=== PATIENT | female | born 1950 | race Caucasian/White ===

== ENCOUNTER 2022-10-21 09:31 | Day surgery (SDC) | payer MEDICARE, OTHER ==
[~2022-10-21 09:31] MED LIST: Lactated Ringers 1,000 ML IV PRN; Sodium Chloride 0.9% 10 ML Syringe FLUSH PRN
[2022-10-21] MEDS ORDERED: Ondansetron 4 MG/2 ML SDV IVPUSH ONE (09:32)
[2022-10-21] MEDS ORDERED: Midazolam 1 MG/ML 2 ML SDV IV ONE (09:32)
[2022-10-21] MEDS ORDERED: acetaZOLAMIDE 500 MG Cap.ER PO ONE (11:30)
== END 2022-10-21 11:50 | disposition home or self-care (01) ==
LOC: FB.SDS 09:31
PROVIDERS: ATTEND Ophthalmology
DX: H26.9 Unspecified cataract (principal); M25.561 Pain in right knee; F43.21 Adjustment disorder with depressed mood; E78.2 Mixed hyperlipidemia; I10 Essential (primary) hypertension; E66.3 Overweight; R73.01 Impaired fasting glucose; Z79.84 Long term (current) use of oral hypoglycemic drugs; Z79.899 Other long term (current) drug therapy; Z68.26 Body mass index [BMI] 26.0-26.9, adult
CPT/HCPCS: 00142; A9270-GY; J2250; J2405; J3490; V2632

== ENCOUNTER 2022-11-04 07:29 | Day surgery (SDC) | payer MEDICARE, OTHER ==
[2022-11-04] MEDS ORDERED: Midazolam 1 MG/ML 2 ML SDV IV ONE (07:30)
[2022-11-04] MEDS ORDERED: Ondansetron 4 MG/2 ML SDV IVPUSH ONE (07:30)
[2022-11-04] MEDS ORDERED: Sodium Chloride 0.9% 10 ML Syringe FLUSH PRN (07:30)
[2022-11-04] MEDS: Lactated Ringers 1,000 ML IV PRN (08:20)
[2022-11-04] MEDS: acetaZOLAMIDE 500 MG Cap.ER PO ONE (09:36)
== END 2022-11-04 10:10 | disposition home or self-care (01) ==
LOC: FB.SDS 07:29
PROVIDERS: ATTEND Ophthalmology
DX: H26.9 Unspecified cataract (principal); F43.21 Adjustment disorder with depressed mood; I10 Essential (primary) hypertension; E78.5 Hyperlipidemia, unspecified; R73.01 Impaired fasting glucose; Z79.899 Other long term (current) drug therapy; Z79.84 Long term (current) use of oral hypoglycemic drugs
CPT/HCPCS: 00142; 66984; A9270; J2250; J2405; J7120; V2632